=== PATIENT | male | born 1945 | race Caucasian/White ===

== ENCOUNTER → 2022-04-03 12:37 | Outpatient (CLI) | payer MEDICARE, SELFPAY ==
[2022-04-03 14:15] LABS: COVID19 -Nasal RAPID Negative (Negative)
--- NOTE | 2022-04-04 20:02 | DI.NM.S_ITS ---
DATE OF SERVICE: 04/03/2022 PROCEDURE PERFORMED: Exercise treadmill stress testing without imaging. ORDERING PROVIDER: MICHELLE Oliver. INDICATIONS: The patient is a 77-year-old male with palpitations, frequent PACs, and sleep apnea. FINDINGS: 1. The patient was able to exercise for 6 minutes, 1 second on a standard [facility] protocol, suggesting average exercise capacity with an ADRIAN of -6%, achieving 6.9 METs. 2. He had a normal heart rate response to exercise, achieving a maximum heart rate of 136 BPM (95% of his predicted maximum). He had a borderline hypertensive blood pressure response with a resting blood pressure of 120/80, increasing to a maximum of 200/84. 3. He had no chest discomfort or other anginal symptoms. 4. Resting ECG shows sinus bradycardia at [address] segments and no arrhythmias. There were no significant ST-segment shifts or arrhythmias with stress. IMPRESSION: 1. Normal exercise treadmill stress test for ischemia. 2. Average exercise capacity without angina or arrhythmia. He had a borderline hypertensive blood pressure response to exercise. Amilcar Glasgow - CARMEN/ghanshyam/lucrecia doc#: [id number]/job#: [id number] dd: 04/04/2022 16:45:00 dt: 04/04/2022 18:12:00 DICTATING /COPIES TO: Jose Juan Gu MD COPIES MNE: EMILIANO
== END ==
PROVIDERS: PCP Nurse Practitioner Family; Referring Provider Nurse Practitioner Family; Visit Provider Nurse Practitioner Family
DX: I49.1 Atrial premature depolarization (principal); R00.2 Palpitations; R00.8 Other abnormalities of heart beat; G47.30 Sleep apnea, unspecified; R53.83 Other fatigue; Z20.822 Contact with and (suspected) exposure to COVID-19
CPT/HCPCS: 87635; 93005; 93017